=== PATIENT | male | born 1935 | race Caucasian/White ===

== ENCOUNTER 2018-10-17 05:34 | Inpatient (IN) | payer MEDICARE | END 2018-10-22 17:40 | disposition home health service (06) | LOC: ORTHO 4S 10-18 16:17 → PAS IN 05:34 → ORTHO 4S 11:02 | PROC: 0RRJ00Z Replacement of Right Shoulder Joint with Reverse Ball and Socket Synthetic Substitute, Open Approach (ICD-10-PCS; principal; 2018-10-17 07:10) | PROC: 0LS30ZZ Reposition Right Upper Arm Tendon, Open Approach (ICD-10-PCS; 2018-10-17 07:10) | DX: M75.121 Complete rotator cuff tear or rupture of right shoulder, not specified as traumatic (principal); G92 Toxic encephalopathy; M75.21 Bicipital tendinitis, right shoulder; M25.511 Pain in right shoulder; M19.011 Primary osteoarthritis, right shoulder ==

== ENCOUNTER 2018-11-04 12:33 | Inpatient (IN) | payer MEDICARE | END 2018-11-11 12:05 | disposition short-term general hospital (02) | LOC: PRE-OP 12:33 → ORTHO 4S 18:03 | PROC: 0RWJXJZ Revision of Synthetic Substitute in Right Shoulder Joint, External Approach (ICD-10-PCS; principal; 2018-11-04 07:12) | PROC: 0RRJ00Z Replacement of Right Shoulder Joint with Reverse Ball and Socket Synthetic Substitute, Open Approach (ICD-10-PCS; 2018-11-04 07:12) | PROC: 0RPJ0JZ Removal of Synthetic Substitute from Right Shoulder Joint, Open Approach (ICD-10-PCS; 2018-11-04 07:12) | DX: T84.428A Displacement of other internal orthopedic devices, implants and grafts, initial encounter (principal); G93.41 Metabolic encephalopathy; N17.9 Acute kidney failure, unspecified; Z96.611 Presence of right artificial shoulder joint ==